=== PATIENT | female | born 1950 ===

== ENCOUNTER 2017-07-13 06:36 | Day surgery (SDC) | payer MEDICARE ==
[2017-07-13 06:51] VITALS: BMI 24.3
[2017-07-13] MEDS ORDERED: Lactated Ringer's 1,000 ML IV ONE ×2 (08:45→12:30)
[2017-07-13] MEDS ORDERED: Propofol 10 mg/ml Inj (20 ML) ONE ×2 (09:50→12:40)
[2017-07-13] MEDS ORDERED: Succinylcholine 200 mg/10 ml Inj IV ONE (09:50)
[2017-07-13] MEDS ORDERED: Ropivacaine 0.5% 30ML IV ONE (10:12)
[2017-07-13] MEDS ORDERED: Bacitracin Ointment 30 GM TUBE ONE (10:26)
[2017-07-13] MEDS ORDERED: Absorbable Gelatin Sponge Size 100 ONE (10:26)
[2017-07-13] MEDS ORDERED: Thrombin Topical 5,000 Int Units Spray Kit ONE (10:26)
[2017-07-13] MEDS ORDERED: EPINEPHrine 1 mg/ml (1:1000) Inj ONE (10:26)
[2017-07-13] MEDS ORDERED: Rocuronium 10 mg/ml (5 ml) ONE (10:59)
[2017-07-13] MEDS ORDERED: EPINEPHrine 1 mg/ml (1:1000) Inj IV ONE (11:00)
[2017-07-13] MEDS ORDERED: ePHEDrine 50 mg/ml Inj ONE (11:12)
[2017-07-13] MEDS ORDERED: Bupivacaine 0.5% Inj(30mL) ONE (11:12)
[2017-07-13] MEDS ORDERED: Lidocaine 2% Inj (20ml) ONE (11:12)
[2017-07-13] MEDS ORDERED: Desflurane Inhalation Anesthetic Liq (240 ml) ONE (11:26)
[2017-07-13] MEDS ORDERED: Neostigmine 1:1000 (1 mg/ml) Inj ONE (11:56)
[2017-07-13] MEDS ORDERED: Lidocaine 2% Inj (20ml) IJ ONE (12:00)
[2017-07-13] MEDS ORDERED: Esmolol 100 mg/10ml Inj IV ONE (13:19)
[2017-07-13] MEDS ORDERED: Morphine 1 mg/ml preservative-free Inj(Duramorph) ONE (13:40)
[2017-07-13] MEDS ORDERED: Bacitracin OINT 15GM TOP ONE (14:00)
[2017-07-13] MEDS ORDERED: Oxycodone/Acetaminophen 5/325 mg Tab PO PRN (14:20)
[2017-07-13] MEDS ORDERED: Sodium Chloride 0.9% 1,000 ML IV SCH (14:30)
[2017-07-13] MEDS ORDERED: HYDROmorphone 0.5 mg/0.5 ml ISec IVP PRN (14:32)
[2017-07-13 16:20] VITALS: RESP 18
--- NOTE | 2017-07-13 17:17 | CP.SDSHP ---
Same Day Surgery H & P - History Proposed Procedure: Right shoulder diagnostic arthroscopy, rotator cuff repair, labral repair Pre-Op Diagnosis: Right shoulder rotator cuff tear - Previous Medical/Surgical History Cardiac: Hypertension Endocrine/Metabolic: Diabetes Pain: 7. Comments: Rheumatoid arthritis Previous Surgical History: none - Allergies Allergies: Allergies pollen Allergy (Uncoded 07/13/17 06:48) ITCHING RUNNY NOSE, ITCHY THROAT - Current Medications Current Medications: Home Medication List Medication Instructions Recorded Confirmed Type oxyCODONE/Acetaminophen [Percocet 1 - 2 ea PO Q6 #30 tab 07/13/17 Rx 5/325 mg Tab] - Physical Exam General Appearance: NAD, AAOx3 Vital Signs: Vital Signs 07/13/17 07/13/17 07/13/17 14:20 14:35 14:50 Temperature 97.0 F L 97.2 F L 97.8 F Pulse Rate 85 78 72 Respiratory 18 18 18 Rate Blood Pressure 154/85 H 109/93 H 120/72 O2 Sat by Pulse 100 100 100 Oximetry 07/13/17 07/13/17 07/13/17 15:05 15:20 15:35 Temperature 98.1 F 98.3 F Pulse Rate 70 71 72 Respiratory 21 19 19 Rate Blood Pressure 113/70 123/72 109/66 O2 Sat by Pulse 100 98 98 Oximetry 07/13/17 07/13/17 07/13/17 15:50 16:05 16:18 Temperature 98.4 F 97.4 F L Pulse Rate 80 79 Respiratory 19 18 Rate Blood Pressure 112/67 127/72 O2 Sat by Pulse 97 96 96 Oximetry Mental Status: Alert & Oriented x3 Neuro: WNL Heart: WNL Lungs: WNL GI: WNL - {Optional Preform as Required} Abdomen: WNL Integument: WNL Ortho: Other (R shoulder: Limited ROM 2nd to pain, sensation intact, 4/5 motor strength, radial pulse intact) ENT: WNL - Impression Impression: Patient is a 66 y/o female with a R shoulder rotator cuff tear. Right shoulder arthroscopic RCR was proposed to the patient. Risks/benefits of the procedure were explained to patient in detail and she agrees to proceed. Pt. Evaluated Today:Candidate for Anesthesia & Procedure: Yes - Date & Time Date: 07/13/17 Time: 10:00 Short Stay Discharge - Short Stay Discharge Admitting Diagnosis/Reason for Visit: S43.431A Disposition: HOME/ ROUTINE Medications: oxyCODONE/Acetaminophen [Percocet 5/325 mg Tab] 1 - 2 ea PO Q6 #30 tab Referrals: Royer Live III, MD [Primary Care Provider] -
--- NOTE | 2017-07-13 17:19 | PCM.SURG1 ---
Surgeon's Initial Post Op Note - Surgeon's Notes Surgeon: Maria T Electronics Test Engineer: LAVONNE Parsons Type of Anesthesia: General Endo Anesthesia Administered By: DR Santiago Pre-Operative Diagnosis: arthrofibrosis R shoulder. labral derangement R shoulder Operative Findings: tear rotator cuff grade 3. labral tear. biceps tendon avulsion. A/c joint arthropathy. subacromial impingemnt Post-Operative Diagnosis: gr 3 tear R rotator cuff. tear glenoid labrum. Biceps tendon avulsion. A/.C jointarthropathy. subacromial impingment. adhesions subacromial space Operation Performed: arthroscopic R rotator cuff repair. arthroscopic biceps tenodesisi (intraarticular). arthroscopic labral repair. arthroscopic partial distal clavbiculectomy. arthroscopic acromiopl;asty. arthroscopy debridemnt subacromial space/lysis of adhesisons+ Specimen/Specimens Removed: synovium/tendon/bone Estimated Blood Loss: EBL {In ML}: 15 Blood Products Given: N/A Drains Used: No Drains Post-Op Condition: Good Date of Surgery/Procedure: 07/13/17 Time of Surgery/Procedure: 11:50 (time in room 10:50/anesthesia indcution time 1050)
[2017-07-13 17:24] VITALS: BP 121/73; PULSE 84; TEMP 97.5; O2SAT 97
--- NOTE | 2017-07-14 07:06 | PCM.ANESB1 ---
Interscalene Block - Brachial Plexus Date of Procedure: 07/13/17 Anesthesiologist: ignacio Pre-Procedure Diagnosis: r shoulder djd Post-Procedure Diagnosis: same Procedure Performed: Interscalene Block of Brachial Plexus Right - Procedure Interscalene Block of Brachial Plexus: This procedure was explained to the patient that it is for post-operative pain management. Consent was obtained after a thorough discussion with the patient regarding the benefits and possible complications of local anesthetic block of the Brachial Plexus at the Interscalene area. The patient was brought to the PACU Room and standard monitors were applied. Time out was held with the circulating nurse to confirm the correct surgery and appropriate block. After applying Oxygen by nasal cannula and administering LOCAL ANESTHESIA, the patient 's head was gently rotated away from the _RIGHT operative shoulder and the anterior scalene groove was carefully palpated. The ultrasound transducer was then applied to the skin in the transverse plane and the brachial plexus was visualized lateral to the carotid artery and in between the anterior and middle scalene muscles. After identification,the anterior lateral portion of the neck was prepped with Betadine solution three times and Lidocaine 1% was injected subcutaneously for topical analgesia. At this point, a # 22 gauge Stimuplex 2 inches insulated needle was inserted into the interscalene groove and directed in a caudal and midline direction. The needle was inserted lateral to the ultrasound transducer in-plane towards the brachial plexus in a [id number] direction. Needle advancement was performed carefully under direct ultrasound visualization. Nerve stimulator was used and twitched of the affected extremity including the hand brachialis muscles, biceps and the deltoid was obtained at a current of _2.0____MA. After repeated negative aspiration,__1___cc of__0.5%___,___ropivicaine were injected and this was followed with _19____cc of _0.5____% __ropivicaine___ . Under ultrasound guidance the local anesthetics were observed surrounding the roots of the brachial plexus. The needle was removed intact and sterile dressing was applied. The patient had stable vital signs, was conscious and in no apparent distress. The patient tolerated the interscalene block of the bracheal plexus well with stable vital signs and was prepared for subsequent surgery. there was no pain or paresthesia during the procedure.
--- NOTE | 2017-07-15 07:42 | OP ---
PROCEDURE DATE: 07/13/2017 LOCATION: [facility]. PREOPERATIVE DIAGNOSES: 1. Internal derangement of the right shoulder. 2. Arthrofibrosis in the right shoulder. POSTOPERATIVE DIAGNOSES: 1. Grade 3 tear of the right rotator cuff. 2. Tear of glenoid labrum. 3. Biceps tendon avulsion. 4. Acromioclavicular joint arthropathy. 5. Subacromial impingement. 6. Adhesions in the subacromial space. OPERATIVE FINDINGS: As above. OPERATIVE PROCEDURE: 1. Rotator cuff repair of the right shoulder. 2. Arthroscopic intra-articular biceps tenodesis, right shoulder. 3. Arthroscopic labral repair. 4. Arthroscopic partial distal claviculectomy. 5. Arthroscopic acromioplasty. 6. Arthroscopic lysis of adhesions and debridement of subacromial space. SURGEON: Royer Live MD DATA COMMUNICATIONS SOFTWARE CONSULTANT: Stacey Lucio, certified registered nursing customer care assistant. TYPE OF ANESTHESIA: General endotracheal anesthesia. COMPLICATIONS: None. DRAINS: None. OPERATIVE INDICATION: Diamond Heard is a 67-year-old woman who has been followed by md for approximately the last 2 to 3 months. The patient presented with essentially a frozen shoulder. The patient was treated with serial intra-articular injection therapy and has achieved a reasonable range of motion, but still has persistent and severe right shoulder pain and restricted range of motion. The patient has failed conservative management. MRI examination was reviewed. Pros, cons, risks and benefits of surgical arthroscopy was discussed. It was discussed with the patient also that since she has arthritic change in the shoulder, she would be a candidate for reverse shoulder arthroplasty. The patient wished the more conservative arthroscopic approach at this point in time. Informed consent was obtained from the patient and her . Again, the possibility of stiffness, nerve injury, mechanical failure, infection, thromboembolic disease, secondary or even later tertiary surgery was discussed. Possibility of later reverse shoulder replacement arthroplasty was discussed. OPERATIVE PROCEDURE: After having obtained informed consent, after having identified side, site and procedure and a critical pause/time-out after the satisfactory induction of the anesthetic, the patient identified as Diamond Heard in a modified Suero chair position, the right upper extremity was prepped, free draped in the usual fashion for upper extremity surgery. The tourniquet had been applied, but was not yet inflated. DESCRIPTION OF THE PROCEDURE: After the satisfactory induction of general anesthesia, after having identified side, site and procedure and a critical pause/time-out, after the satisfactory induction of the anesthetic, the right upper extremity was placed in the shoulder positioner. The topographic anatomy of the shoulder was marked, after having identified side, site and procedure and a critical pause/time-out, after satisfactory induction of anesthetic, the patient identified as Diamond Heard in the modified Suero chair position. The right upper extremity was prepped and free draped with the arm in the shoulder positioner. Joint was insufflated with 10 mL of 1% lidocaine from posterolateral portal. Using number 11 blade followed by spreading introduction of blunt trocar the arthroscope was introduced. Great care was taken to stay lateral to the coracoid process. Triangulation was accomplished using a 18 gauge spinal needle, followed by number 11 blade, followed by spreading with the arthroscope posteriorly. The Wissinger antonio and cannula were placed anteriorly, posterolateral portal was accomplished using number 18-gauge spinal needle followed by number 11 blade followed by spreading. With the arthroscope posteriorly, the sign of the arthritic change in the joint with evidence of a high-riding humeral head, there was evidence of a labral tear and avulsion of the biceps tendon. Thorough debridement of glenohumeral joint was accomplished with the arthroscopic shaver. At this point in time, the anterior aspect of the labrum was grasped with the Nitinol wire brought out posteriorly. The FiberTape was loaded, brought out anteriorly and the anchor was loaded. Drilling was accomplished at approximately the 1 o'clock position. PushLock anchor was introduced and there was found to be acceptable repair. At this point in time, there was found to be evidence of instability of the biceps tendon anchor. This also was pierced using the lasso, Nitinol wire was brought out posteriorly. The FiberTape was brought out anteriorly. Drilling was accomplished, the PushLock anchor was loaded, proximal aspect of the glenoid having been repaired, the intra-articular biceps tenodesis was accomplished by using the PushLock anchor. This having been accomplished, the wound was thoroughly irrigated. Thorough debridement of glenohumeral joint continues, the inner free edge was smoothed using the arthroscopic wand. This having been accomplished, the arthroscope posteriorly, the right upper extremity was placed in dependency, the subacromial space was entered. A mid lateral portal was accomplished in the fashion described so-called [place] portal using number 18-gauge spinal needle, followed by number 11 blade, followed by spreading. With the arthroscope posteriorly, careful debridement of the subacromial space was accomplished. Thorough lysis of adhesions and debridement was accomplished and there was found to be an exuberant synovitis, adhesions and bursitis in the subacromial space. This having been accomplished, the bursitis and synovitis have been addressed and partial synovectomy, partial bursectomy having been accomplished, the undersurface of the acromioplasty was accomplished using the bur with the arthroscope and lateral partial acromioplasty having been accomplished, there was found to be a grade 3 complex tear of the rotator cuff. This was not mentioned on MRI examination. The torn lesion of the rotator cuff identified. With the arthroscope posteriorly, the Scorpion was placed and the suture was brought out laterally. Final portal was accomplished just above the clavicle, using number 18-gauge spinal needle followed by number 11 blade. This having been accomplished, the initial FiberTape was brought out superiorly. The FiberTape lateral was loaded and the inverted V-type repair was brought out superiorly as well. The SwiveLock anchor was loaded, the arm in abduction and rotation, the rotator cuff was thus repaired. It was packed and then using the SwiveLock the tensioning was accomplished. The suture was clipped, this was a limited goals repair because humeral head coverage cannot be obtained tissue. This having been accomplished, partial acromioplasty having been accomplished, with the arthroscope mid laterally, the partial distal claviculectomy was accomplished to include the distal articular surface. The distal and prostate distal 1 cm partial acromioplasty was accomplished, partial distal claviculectomy was accomplished. Bleeding points were controlled with the arthroscopic wand. The wound was thoroughly irrigated and closures in layers with interrupted Vicryl and nylon. No injection was offered because the block was offered by Dr. Santiago. Compression dressing and shoulder immobilizers were applied. Royer Live MD
== END 2017-07-13 17:30 | disposition home or self-care (01) ==
LOC: H.OPSURG 06:36
PROVIDERS: ATTEND Orthopaedic Surgery
DX: S43.431A Superior glenoid labrum lesion of right shoulder, initial encounter (principal); S43.421A Sprain of right rotator cuff capsule, initial encounter; X58.XXXA Exposure to other specified factors, initial encounter; E11.9 Type 2 diabetes mellitus without complications; I10 Essential (primary) hypertension; E78.5 Hyperlipidemia, unspecified; M54.9 Dorsalgia, unspecified; M75.41 Impingement syndrome of right shoulder; M75.01 Adhesive capsulitis of right shoulder
CPT/HCPCS: 29825; 29826; 29827; 29828; 82948; C1713; J0171; J0330; J0690; J2001; J2270; J2405; J2704; J2710; J3010; J7030; J7040; J7120

== ENCOUNTER 2017-12-12 06:23 | Day surgery (SDC) | payer MEDICARE ==
[2017-12-08 09:12] VITALS: BMI 24.0
--- NOTE | 2017-12-12 07:17 | CP.SDSHP ---
Same Day Surgery H & P - History Proposed Procedure: Right shoulder arthroscopy, manipulation under anesthesia Pre-Op Diagnosis: Arthrofibrosis s/p shoulder arthroscopy - Previous Medical/Surgical History Cardiac: Hypertension Endocrine/Metabolic: Diabetes Previous Surgical History: Right shoulder arthroscopy 07/13/2017 with RC repair, biceps tenodesis,labral repair, acromioplasty, distal claviculectomy, lysis of adhesions - Allergies Allergies: Allergies pollen Allergy (Uncoded 07/13/17 06:48) ITCHING RUNNY NOSE, ITCHY THROAT - Physical Exam Vital Signs: Vital Signs 12/12/17 07:05 Temperature 98.1 F Pulse Rate 73 Respiratory 18 Rate Blood Pressure 137/78 O2 Sat by Pulse 98 Oximetry Mental Status: Alert & Oriented x3 Heart: WNL Lungs: WNL GI: WNL - {Optional Preform as Required} Ortho: Other (limited AROM and PROM, +radial pulse, sensation intact, well healed surgical incisions) Other Pertinent Findings: medical clearance on chart. [place] [employer] patient report reviewed, no CDS since 06/2017 post op. Patient counseled on the risks of addiction, physical or psychological dependence, and overdose associated with opioid drugs and the danger of taking opioid drugs with alcohol and other central nervous system depressants, and cautioned patient on storage and disposal. - Impression Impression: 67F with limited ROM s/p right shoulder arthroscopy 07/13/2017 for MARCOS/arthroscopy Pt. Evaluated Today:Candidate for Anesthesia & Procedure: Yes - Date & Time Date: 12/12/17 Time: 07:19 Short Stay Discharge - Short Stay Discharge Admitting Diagnosis/Reason for Visit: Z53.33 Disposition: HOME/ ROUTINE Referrals: Royer Live III, MD [Primary Care Provider] -
[2017-12-12] MEDS ORDERED: Rocuronium 10 mg/ml (5 ml) ONE (07:19)
[2017-12-12] MEDS ORDERED: Lidocaine 2% MPF (5 ml) Inj ONE ×2 (07:19→07:38)
[2017-12-12] MEDS ORDERED: Etomidate 20 mg/10ml Inj IV ONE (07:19)
[2017-12-12] MEDS ORDERED: Succinylcholine 200 mg/10 ml Inj IV ONE (07:19)
[2017-12-12] MEDS ORDERED: Phenylephrine 10 mg/ml Inj ONE (07:21)
[2017-12-12] MEDS ORDERED: Bupivacaine HCl 0.5% PF (30 ml) Inj ONE (07:24)
[2017-12-12] MEDS ORDERED: Sodium Chloride 0.9% 10 ML IV ONE (07:24)
[2017-12-12] MEDS ORDERED: EPINEPHrine 1 mg/ml (1:1000) Inj ONE (07:25)
[2017-12-12] MEDS ORDERED: ceFAZolin IV 2 gm in Dextrose 0 GM/0 ML BAG IVPB ONE (07:38)
[2017-12-12] MEDS ORDERED: GELATIN SPONGE,ABSORB/PORCINE 1 EACH SPONGE TP ONE (07:39)
[2017-12-12] MEDS ORDERED: Thrombin Topical 5,000 Int Units Spray Kit ONE (07:39)
[2017-12-12] MEDS ORDERED: EPINEPHrine 1:1000 Nasal Sol(30mL) ONE (07:39)
[2017-12-12] MEDS ORDERED: Midazolam 2 MG/2 ML VIAL ONE (07:52)
[2017-12-12] MEDS ORDERED: Dexamethasone 4 mg/1 ml ONE (08:26)
[2017-12-12] MEDS ORDERED: Neostigmine 1:1000 (1 mg/ml) Inj ONE (08:52)
[2017-12-12] MEDS ORDERED: Bacitracin Ointment 30 GM TUBE ONE (09:01)
[2017-12-12] MEDS ORDERED: methylPREDNISolone Depo 80 mg/ml Inj ONE (09:20)
[2017-12-12] MEDS ORDERED: methylPREDNISolone Depo 80 mg/ml Inj IM ONE (09:30)
[2017-12-12] MEDS ORDERED: Lactated Ringer's 1,000 ML IV ONE ×2 (09:30)
--- NOTE | 2017-12-12 09:46 | PCM.SURG1 ---
Surgeon's Initial Post Op Note - Surgeon's Notes Surgeon: Maria T Renewals Manager: LAVONNE Rowell Type of Anesthesia: General Endo, Block Regional Anesthesia Administered By: DR Lugo Pre-Operative Diagnosis: arthrofibrosis R shoulder. A/C joint arthropathy. tear labrum R shoulder. tear R rotator cuff. subacromial impingment. foreign body (deep) Operative Findings: arthrofibrosis R shoulder. distal clavicular impingement. subacromial impirngement. rotator cuff tear. labral tear. foreign body (deep) - suture Post-Operative Diagnosis: as above Operation Performed: arthroscopic R shoulder synovectomy and lysis of adhesions. arthroscopic partial distal clavbiculectomy. arthroscopic treament/ debridemnt R rotator cuff tear. artghroscopic labral debridement. arthroscopic removal foreign body( suture) deep.manipuylation R shoulder under anaesthesia Specimen/Specimens Removed: foreing body(sutture) cartilage/synvoium Estimated Blood Loss: EBL {In ML}: 5 Blood Products Given: N/A Drains Used: No Drains Post-Op Condition: Good Date of Surgery/Procedure: 12/12/17 Time of Surgery/Procedure: 08:45 (time in room anetshesia indcution time 7:45)
[2017-12-12] MEDS ORDERED: HYDROmorphone 0.5 mg/0.5 ml ISec IVP PRN (09:47)
--- NOTE | 2017-12-12 09:51 | PCM.ANESB1 ---
Interscalene Block - Brachial Plexus Date of Procedure: 12/12/17 Anesthesiologist: Tala Pre-Procedure Diagnosis: Arthrofibrosis right shoulder Post-Procedure Diagnosis: Same Procedure Performed: Interscalene Block of Brachial Plexus Right - Procedure Interscalene Block of Brachial Plexus: This procedure was explained to the patient that it is for post-operative pain management. Consent was obtained after a thorough discussion with the patient regarding the benefits and possible complications of local anesthetic block of the Brachial Plexus at the Interscalene area. The patient was brought to the Operating Room and standard monitors were applied. Time out was held with the circulating nurse to confirm the correct surgery and appropriate block. After applying Oxygen by nasal cannula and administering IV Sedation, the patient's head was gently rotated away from the __right____operative shoulder and the anterior scalene groove was carefully palpated. The ultrasound transducer was then applied to the skin in the transverse plane and the brachial plexus was visualized lateral to the carotid artery and in between the anterior and middle scalene muscles. After identification,the anterior lateral portion of the neck was prepped with BChloraprep and Lidocaine 1% was injected subcutaneously for topical analgesia. At this point, a # 22 gauge Stimuplex 2 inches insulated needle was inserted into the interscalene groove and directed in a caudal and midline direction. The needle was inserted lateral to the ultrasound transducer in-plane towards the brachial plexus in a [id number] direction. Needle advancement was performed carefully under direct ultrasound visualization. Nerve stimulator was used and twitched of the affected extremity including the hand brachialis muscles, biceps and the deltoid was obtained at a current of __0.4___MA. After repeated negative aspiration,__2___cc of__0.375% bupivacaine with 1:200,000 epinephrine___, were injected and this was followed with _28___ _cc of _0.375%____% _bupivacaine with 1:200,000 epinephrine . Under ultrasound guidance the local anesthetics were observed surrounding the roots of the brachial plexus. The needle was removed intact. The patient had stable vital signs, was conscious and in no apparent distress. The patient tolerated the interscalene block of the bracheal plexus well with stable vital signs and was prepared for subsequent surgery.
[2017-12-12] MEDS ORDERED: Lactated Ringer's 1,000 ML IV SCH (10:00)
[2017-12-12] MEDS ORDERED: Oxycodone/Acetaminophen 5/325 mg Tab PO PRN (10:21)
[2017-12-12 11:16] VITALS: O2SAT 98
[2017-12-12 12:09] VITALS: BP 134/74; PULSE 81; RESP 14; TEMP 97.8
--- NOTE | 2017-12-13 11:00 | OP ---
PROCEDURE DATE: 12/12/2017PREOPERATIVE DIAGNOSIS: Arthrofibrosis of the right shoulder. POSTOPERATIVE DIAGNOSES: 1. 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 2. Tear of the rotator cuff. 3. Tear of the glenoid labrum. 4. Subclavicular compression. 5. Subacromial compression with marked bursitis and adhesions in the subacromial space. OPERATIVE FINDINGS: As above. 1. Arthrofibrosis of the right shoulder. 2. Rotator cuff tear. 3. Labral tear. 4. Subclavicular impingement. 5. Subacromial impingement. 6. Severe adhesions and bursitis in the subacromial space. OPERATIVE PROCEDURES: 1. Surgical arthroscopy, open debridement, rotator cuff tear. 2. Surgical arthroscopy, open treatment of labral tear. 3. Surgical arthroscopy, partial distal claviculectomy. 4. Surgical arthroscopy, partial acromioplasty. 5. Surgical arthroscopy, extensive lysis of adhesions, and synovectomy in the glenohumeral joint. 6. Surgical arthroscopy, extensive adhesions, lysis of adhesions, and excision of bursa in the subacromial space. 7. Manipulation of the shoulder under anesthesia. SURGEON: Royer Live MD FUR DRUMMER: PAM Fernandez ANESTHESIA: General and regional block anesthesia, Dr. Edgar. BLOOD LOSS: Approximately 15 mL. COMPLICATIONS: No complications. OPERATIVE INDICATION: Diamond Heard is a woman who had undergone successful arthroscopic shoulder surgery and had an extremely poor response to physical therapy. This was discussed with her from early in the postoperative course. The patient had a successful rotator cuff tear and labral repair. The patient was unsuccessful with physical therapy, developed a marked contracture. The patient was treated conservatively with multiple intra-articular injections and therapy. The patient can no longer withstand the discomfort and wished the surgery to be accomplished. Pros, cons, risks, and benefits of same were discussed. Possibility of mechanical failure, infection, thromboembolic disease, possibility of secondary or tertiary surgery were discussed. The patient can no longer withstand the discomfort and wished the surgery to be accomplished. OPERATIVE PROCEDURE: After having obtained informed consent in the above fashion, after the satisfactory induction of general and regional anesthesia by Dr. Edgar, after having identified side, site, and procedure, and critical pause/time-out, the patient identified as Diamond Orquidea in the modified Suero chair position. The right upper extremity was prepped and free draped in the usual fashion for left upper extremity surgery. Prior to prepping and draping with great care taken to grasp the scapula and the humerus very high proximally, so as to avoid fracture, the shoulder was manipulated. Intraoperative photographs were obtained, and the patient obtained full forward flexion/total elevation. There was a marked sound of crepitus as the adhesions were broken. External rotation was guaranteed as well. Internal rotation was improved, external rotation was improved, and the patient was placed in the upper extremity positioner for the arthroscopic portion of the procedure. At this point in time with the right upper extremity in the shoulder positioner, the joint was insufflated with 10 mL of 1% lidocaine without epinephrine. Using a #11 blade, followed by spreading, followed by introduction of blunt trocar, the arthroscope was introduced. There was found to be a massive amount of adhesions in the glenohumeral joint. Triangulation was accomplished using a #18-gauge spinal needle, followed by #11 blade, followed by spreading, followed by introduction of blunt trocar. A mid lateral portal was accomplished as well using a #18-gauge spinal needle, followed by #11 blade, followed by spreading. With the arthroscope posteriorly using the arthroscopic shaver, an extensive synovectomy and lysis of adhesions in the glenohumeral joint were accomplished. Please refer to the video photographs. This having been accomplished with the arthroscope posteriorly, careful synovectomy and debridement of the glenohumeral joint were accomplished. With the arthroscope posteriorly, partial synovectomy was accomplished as well as debridement of the glenohumeral joint, and the glenohumeral joint was freed. Blood from the manipulation was carefully evacuated and thorough irrigation of the joint commenced. There was found be evidence of inner free edge of the labral tear with the arthroscope posteriorly. Using a combination of the arthroscopic shaver, debridement of the glenoid labral tear was accomplished. The repair of the glenoid labrum had been successful. This having been accomplished, further debridement of the glenohumeral joint was accomplished and partial synovectomy. At this point in time with the shoulder placed in dependency, the arthroscope was placed in the subacromial space, and there was severe evidence of adhesions to the under aspect of the acromion. With the arthroscope posteriorly, the shaver was placed mid laterally. First of all, the arthroscopic wand was placed, and an extensive debridement and lysis of adhesions in the subacromial space were accomplished. This was very arduous and took a significant amount of time. The arthroscope was placed mid laterally and from the anterior portal using the #18-gauge spinal needle, followed by #11 blade, followed by spreading. With the arthroscope mid laterally, careful debridement and lysis of adhesions in the subacromial space were carried out. With the arthroscope mid laterally, using a combination of the 5.2 mm Strawberry energ[employer] suction punch, and the arthroscopic shaver, lysis of adhesions and bursectomy in the subacromial space were accomplished. With the arthroscope mid laterally from the anterior portal, an aggressive lysis of adhesions and bursectomy of the subacromial space were accomplished. This having been accomplished, there was found to be evidence of a re-tear of the rotator cuff. To ensure that no further arthrofibrosis would occur, the rotator cuff was carefully debrided in the fashion described by to repair the rotator cuff and would encourage arthrofibrosis in this patient in my opinion. Possibility of later secondary or tertiary surgery had been discussed with the patient. This having been accomplished, the arthroscope again posteriorly, extensive debridement, lysis of adhesions were continued. With the arthroscope now mid laterally using the arthroscopic bur, a partial acromioplasty was accomplished. With the arthroscope mid laterally, careful debridement and lysis of adhesions in the subacromial space were accomplished. With the arthroscope mid laterally, further debridement to the area of the distal clavicle was accomplished. There was evidence of a distal clavicular impingement which was residual. With the arthroscope mid laterally, the arthroscopic bur was placed anteriorly and a partial distal claviculectomy was accomplished. The arthroscope was again transferred posteriorly with the bur mid laterally, further debridement especially of the undersurface of the distal clavicle was accomplished. A careful partial distal claviculectomy was accomplished. With the arthroscope posteriorly, careful partial-distal claviculectomy was accomplished. At this point in time, having debrided the soft tissue in the subacromial space with the arthroscope posteriorly, a partial acromioplasty was accomplished using the arthroscopic bur as well. Great care was taken, please refer to the video photographs to debride the distal clavicle and the acromion. With the arthroscope posteriorly, the subacromial space was carefully debrided. Using a combination of 5.2 mm [employer] suction punch and the arthroscopic shaver, arthroscopic subacromial de-impingement was accomplished. Careful bursectomy and lysis of adhesions in the subacromial space were accomplished. With the arthroscope posteriorly, careful synovectomy and bursectomy were accomplished in the subacromial space. The wound was thoroughly irrigated, labral tear having been debrided, rotator cuff having been debrided, extensive debridement of the glenohumeral joint having been accomplished, the wound is thoroughly irrigated. Closure was in layers with interrupted Vicryl and nylon. Intra-articular steroid injection was accomplished. The patient had received a block preoperatively. A simple sling was applied, and the patient will be seen tomorrow to resume immediate physical therapy. Royer Live MD
== END 2017-12-12 13:40 | disposition home or self-care (01) ==
LOC: H.OPSURG 06:23
PROVIDERS: ATTEND Orthopaedic Surgery
DX: M24.611 Ankylosis, right shoulder (principal); E11.9 Type 2 diabetes mellitus without complications; E78.5 Hyperlipidemia, unspecified; I10 Essential (primary) hypertension; M75.101 Unspecified rotator cuff tear or rupture of right shoulder, not specified as traumatic; M75.41 Impingement syndrome of right shoulder; M75.01 Adhesive capsulitis of right shoulder; M75.51 Bursitis of right shoulder
CPT/HCPCS: 29825; 29826; 29827; 82948; 88304; J0171; J0330; J0690; J1040; J1100; J2001; J2250; J2370; J2405; J2710; J2765; J3010; J7030; J7120